=== PATIENT | female | born 1990 | race Caucasian/White ===

== ENCOUNTER → 2016-09-27 | Outpatient (CLI) | payer OTHER ==
--- NOTE | 2016-09-27 13:30 | US ---
Left Upper Extremity Ultrasound with Duplex Doppler History: Swelling, pain. Recent deep tissue massage. Comparison: None available. Technique: The veins of the left neck and upper extremity are assessed with grayscale and Doppler ult rasound with compression of accessible vein segments. Findings: The left internal jugular, subclavian, axillary, cephalic, basilic, and paired brachial vei ns are patent, with normal color Doppler appearance and waveforms. Accessible vein segments are compr essible. Limited ultrasound the area of swelling shows mild thickening of the subcutaneous tissues wi th no focal fluid collection or hematoma. Impression: No evidence of DVT. Findings discussed with Santhosh Han today at 1326 hours.
== END ==
LOC: FIMAGING 12:06
PROVIDERS: ATTEND Nurse Practitioner
DX: M79.89 Other specified soft tissue disorders (principal); M79.622 Pain in left upper arm